=== PATIENT | female | born 1940 | race Caucasian/White ===

== ENCOUNTER 2020-03-04 02:57 | Emergency (ER) | payer MEDICARE ==
[~2020-03-04] VITALS: Ht 157.5 cm; Wt 79.4 kg
[2020-03-04 02:57] VITALS: BP_SYST 177
[~2020-03-04 02:57] MED LIST: HYDR-1189 PO
[2020-03-04 06:24] LABS: BASOPHILS % (AUTO) 0.6 % (0.0-2.0); EOSINOPHILS # (AUTO) 0.2 K/uL (0.0-0.4); EOSINOPHILS % (AUTO) 2.6 % (0.0-4.0); HEMATOCRIT 42.6 % (36-48); HEMOGLOBIN 14.2 g/dL (12.0-16.0); LYMPHOCYTES # (AUTO) 1.3 K/uL (1.0-5.5); LYMPHOCYTES % (AUTO) 19.6 % (20.5-51.5); MEAN CORPUSCULAR HEMOGLOBIN 29 pg (27-31); MEAN CORPUSCULAR HGB CONC 33 % (32-36); MEAN CORPUSCULAR VOLUME 88 fL (79.0-98.0); MONOCYTES # (AUTO) 0.6 K/uL (0.0-1.0); NEUTROPHILS # (AUTO) 4.3 K/uL (1.8-7.7); NEUTROPHILS % (AUTO) 67.2 % (40.0-70.0); RED BLOOD CELL COUNT(AUTO) 4.86 MIL/uL (4.2-6.2); WHITE BLOOD COUNT (AUTO) 6.4 K/uL (4.8-10.8)
[2020-03-04 06:36] LABS: ANION GAP 7 (5-15); CALCIUM 9.2 mg/dL (8.4-11.0); CHLORIDE 103 mmol/L (98-107); CREATININE 0.99 mg/dL (0.55-1.30); GLUCOSE 109 mg/dL (70-99); POTASSIUM 3.8 mmol/L (3.5-5.1); SODIUM SERUM 138 mmol/L (136-145); UREA NITROGEN, BLOOD 26 mg/dL (8-21)
[2020-03-04 06:43] LABS: PLATELET COUNT (AUTO) 215 K/uL (130-430)
[2020-03-04 06:50] LABS: ALANINE AMINOTRANSFERASE 30 U/L (12-78); ALBUMIN 3.5 g/dL (3.4-4.8); ASPARTATE AMINOTRANSFERASE 24 U/L (10-37); TOTAL BILIRUBIN 0.5 mg/dL (0.0-1.0)
[2020-03-04 07:26] VITALS: BP_SYST 148
== END 2020-03-04 07:25 | disposition short-term general hospital (02) ==
LOC: SED 02:57
DX: K46.9 Unspecified abdominal hernia without obstruction or gangrene (principal); Z85.41 Personal history of malignant neoplasm of cervix uteri; Z79.899 Other long term (current) drug therapy; Z88.0 Allergy status to penicillin; Z88.1 Allergy status to other antibiotic agents; Z88.6 Allergy status to analgesic agent
CPT/HCPCS: 36415; 80053; 83605; 85025; 99285

== ENCOUNTER 2020-11-23 15:15 | Emergency (ER) | payer MEDICARE ==
[~2020-11-23] VITALS: Ht 157.5 cm; Wt 68.0 kg
[2020-11-23 15:15] VITALS: BP_SYST 133
[2020-11-23 16:34] VITALS: BP_SYST 133
== END 2020-11-23 16:34 | disposition home or self-care (01) ==
LOC: SED 15:15
DX: S81.812A Laceration without foreign body, left lower leg, initial encounter (principal); Z88.0 Allergy status to penicillin; Z88.1 Allergy status to other antibiotic agents; Z88.6 Allergy status to analgesic agent; Z79.899 Other long term (current) drug therapy; W26.8XXA Contact with other sharp object(s), not elsewhere classified, initial encounter; Y93.89 Activity, other specified; Y92.89 Other specified places as the place of occurrence of the external cause; Y99.8 Other external cause status
CPT/HCPCS: 99283